=== PATIENT | male | born 1975 | race African-American/Black ===

== ENCOUNTER → 2017-01-27 | Outpatient (CLI) | payer OTHER ==
[~2017-01-27] MED LIST: NORVASC PO
--- NOTE | ~2017-01-27 | CT114 ---
[facility] A Service of [facility] & [facility] RADIOLOGY TEXT RESULTS PATIENT: KEVIN REYES LOCATION: [facility] : 73 UNIT #: [id number] AGE: [address]: Rachel Hernandez MD SEX: M ORDER DR: [id number] [facility] [address] [place], [place] [address] [id number] O MR#: [id number] Acc #: [id number] NAME: KEVIN REYES : 1975 SEX: M STUDY DATE/TIME: 01/27/2017 13:12 UNIT: [facility] ROOM: STUDY DESCRIPTION: CT Soft Tissue Neck W Cont Attending Physician: Rachel Hernandez M.D. Ordering Physician: Rachel Hernandez M.D. Primary Care Physician: [facility] MEDICAL IMAGING REPORT This report is preliminary unless electronic signature is present EXAM Soft tissue neck CT with contrast 01/27/2017 COMPARISON Prior CTs most recent of 01/09/2016 but dating back to 01/18/2015 PROCEDURE Axial contrast-enhanced soft tissue neck CT with multiplanar reformats. This CT exam was performed with one or more of the following radiation dose reduction techniques: automatic exposure control, adjustment of mA and/or kV according to patient size, and iterative reconstruction. HISTORY Routine followup for Hodgkin lymphoma, scheduled followup. No new symptoms. FINDINGS Mostly left-sided prominent cervical lymph nodes are seen and are stable unchanged in size since 01/09/2016. They remain slightly diminished when compared to the study of 01/18/2015. What is probably the largest single left cervical node measures about 1.6 x 1.7 x 3.1 cm on the current study, again unchanged since the examination of January 09, 2016. On the study of 01/18/2015 this same lymph node measured about 1.7 x 1.9 x 3.3 cm in size and again is very slightly diminished. No new adenopathy or new abnormality is seen. IMPRESSION Stable primarily left-sided prominent cervical lymph nodes. No new abnormality. No substantial interval change since January 2016. Slightly diminished if any change since January 2015. Dictated by... [facility] A Service of [facility] & [facility] RADIOLOGY TEXT RESULTS PATIENT: [facility]EVIN [facility]YES [id number] [birth year] UNIT #: [id number] AGE: [address]: Rachel Hernandez MD SEX: M ORDER DR: Seymour Beasely M.D. THIS IS AN ELECTRONICALLY VERIFIED REPORT Seymour Beasley M.D. at 01/31/2017 5:04 PM MINDI/anish TD: 01/27/2017 18:47 JOB #: [id number] MEDICAL IMAGING REPORT Page 1 of 1 COPY
--- NOTE | ~2017-01-27 | CT55 ---
[facility] A Service of [facility] RADIOLOGY TEXT RESULTS PATIENT: KEVIN REYES LOCATION: [facility] : 73 UNIT #: [id number] AGE: [address]: Rachel Hernandez MD SEX: M ORDER DR: [id number] [place], [place] [address] [id number] O MR#: [id number] Acc #: [id number] NAME: KEVIN REYES : 1975 SEX: M STUDY DATE/TIME: 01/27/2017 13:12 UNIT: [facility] ROOM: STUDY DESCRIPTION: CT Chest W Con Attending Physician: Rachel Hernandez M.D. Ordering Physician: Rachel Hernandez M.D. [facility] REPORT This report is preliminary unless electronic signature is present EXAM CT chest with contrast. INDICATION Restaging Hodgkin lymphoma. Observation for response to therapy and disease progression. PROCEDURE Contrast-enhanced CT of the chest. 100 mL of Isovue-370. This CT exam was performed with one or more of the following radiation dose reduction techniques: automatic exposure control, adjustment of mA and/or kV according to patient size, and iterative reconstruction. COMPARISON 01/09/2016 FINDINGS Lungs are clear. No pleural fluid or pneumothorax. No pathologically enlarged adenopathy in the chest. No aggressive appearing bone lesion. IMPRESSION 1. No pathologically enlarged adenopathy in the chest. No acute findings. 2. Refer to the separately dictated abdomen and pelvis CT for findings below the diaphragm. Dictated by... Kenji Madrid M.D. THIS IS AN ELECTRONICALLY VERIFIED REPORT [facility] A Service of [facility] RADIOLOGY TEXT RESULTS PATIENT: KEVIN REYES LOCATION: [facility] : 73 UNIT #: [id number] AGE: [address]: Rachel Hernandez MD SEX: M ORDER DR: Kenji Madrid M.D. at 01/28/2017 7:35 AM BETHANY/ruth TD: 01/27/2017 17:16 JOB #: [id number] MEDICAL IMAGING REPORT Page 1 of 1 COPY
--- NOTE | ~2017-01-27 | CT2 ---
[facility] A Service of [facility] RADIOLOGY TEXT RESULTS PATIENT: KEVIN REYES LOCATION: [facility] : 73 UNIT #: [id number] AGE: [address]: Rachel Hernandez MD SEX: M ORDER DR: [id number] [address] [address] [id number] O MR#: [id number] Acc #: [id number] NAME: KEVIN REYES : 1975 SEX: M STUDY DATE/TIME: 01/27/2017 13:12 UNIT: [facility] ROOM: STUDY DESCRIPTION: CT Abd and Pelv W Cont Attending Physician: Rachel Hernandez M.D. Ordering Physician: Rachel Hernandez M.D. Primary Care Physician: [facility] MEDICAL IMAGING REPORT This report is preliminary unless electronic signature is present EXAM CT abdomen and pelvis with contrast INDICATIONS Restaging Hodgkin lymphoma. Observation for response to therapy and metastatic disease. PROCEDURE Contrast-enhanced CT abdomen and pelvis 100 mL of Isovue-370 COMPARISON 01/09/2016 FINDINGS Abdomen with contrast. FINDINGS The liver, spleen, kidneys, adrenal glands, pancreas and gallbladder unremarkable. There is a stable 10 mm right adrenal nodule probably represents a benign adenoma. The bowel loops are nondilated. The appendix is normal. No pathologically enlarged abdominal nodes. Pelvis with contrast: No pelvic adenopathy. No aggressive appearing bone lesion. IMPRESSION No abdominal or pelvic adenopathy. Dictated by... Kenji Madrid M.D. [facility] A Service of [facility] RADIOLOGY TEXT RESULTS PATIENT: KEVIN REYES LOCATION: [facility] : 73 UNIT #: [id number] AGE: [address]: Rachel Hernandez MD SEX: M ORDER DR: THIS IS AN ELECTRONICALLY VERIFIED REPORT Kenji Madrid M.D. at 01/28/2017 7:35 AM Willie TD: 01/27/2017 17:26 JOB #: [id number] MEDICAL IMAGING REPORT Page 1 of 1 COPY
[2017-01-27 13:16] LABS: POC - CREATININE 0.88 mg/dL (0.64-1.27); POC - GFR >60.0 mL/min (>60)
== END | disposition home or self-care (01) ==
LOC: CCAT 12:44
PROVIDERS: Internal Medicine Hematology
DX: C81.99 Hodgkin lymphoma, unspecified, extranodal and solid organ sites (principal); R22.0 Localized swelling, mass and lump, head
CPT/HCPCS: 70491; 71260; 74177; 82565; Q9967